=== PATIENT | male | born 1965 | race Caucasian/White ===

== ENCOUNTER 2016-04-20 11:02 | Emergency (ER) | payer OTHER ==
[2016-04-20 10:27] LABS: INFLUENZA A POS (NEG); INFLUENZA B NEG (NEG)
== END 2016-04-20 11:07 | disposition home or self-care (01) ==
LOC: CED 11:02
PROVIDERS: Emergency Medicine
DX: J10.1 Influenza due to other identified influenza virus with other respiratory manifestations (principal); I10 Essential (primary) hypertension; G43.909 Migraine, unspecified, not intractable, without status migrainosus; F17.210 Nicotine dependence, cigarettes, uncomplicated
CPT/HCPCS: 87804; 99283